=== PATIENT | female | born 1970 | race Caucasian/White ===

== ENCOUNTER 2019-10-24 14:59 | Inpatient (IN) | payer OTHER ==
[~2019-10-24] VITALS: Ht 157.5 cm; Wt 58.5 kg
[2019-10-30] MEDS ORDERED: DUI500 PO (06:50)
[2019-10-30] MEDS ORDERED: DOCUSATE SODIU100 MG PO (06:50)
[2019-10-30] MEDS ORDERED: IBUPROFEN800 MG PO (06:50)
[2019-10-30] MEDS ORDERED: SIMETHICONE125 M1 PO (06:50)
== END 2019-10-30 10:24 | disposition home or self-care (01) | DRG 742 ==
LOC: SURH 14:59 → SURG-SUITE 15:58
PROVIDERS: ADMIT Obstetrics & Gynecology; ATTEND Obstetrics & Gynecology
PROC: 0UB70ZZ Excision of Bilateral Fallopian Tubes, Open Approach (ICD-10-PCS; 2019-10-27)
PROC: 0TQB0ZZ Repair Bladder, Open Approach (ICD-10-PCS; 2019-10-27)
PROC: 0UT90ZZ Resection of Uterus, Open Approach (ICD-10-PCS; principal; 2019-10-27 07:15)
DX: N72 Inflammatory disease of cervix uteri (principal); N99.71 Accidental puncture and laceration of a genitourinary system organ or structure during a genitourinary system procedure; D25.1 Intramural leiomyoma of uterus; D25.0 Submucous leiomyoma of uterus; N84.0 Polyp of corpus uteri; N83.8 Other noninflammatory disorders of ovary, fallopian tube and broad ligament; D64.9 Anemia, unspecified; Y92.234 Operating room of hospital as the place of occurrence of the external cause

== ENCOUNTER 2023-11-01 08:04 | Emergency (ER) | payer OTHER ==
[~2023-11-01] VITALS: Ht 157.5 cm; Wt 64.4 kg
[~2023-11-01 08:04] MED LIST: DOCUSATE SODIU100 MG PO; DUI500 PO; IBUPROFEN800 MG PO; SIMETHICONE125 M1 PO
[2023-11-01 09:36] LABS: HEMOGLOBIN 13.7 g/dL (12.0-15.00); MEAN CELL VOLUME 83.7 fL (80.00-100.00); MEAN CORPUSCULAR HEMOGLOBIN 29.3 pg (27.00-32.0); PLATELET COUNT 294 K/uL (150-450); RED BLOOD COUNT 4.66 M/uL (4.00-6.00); RED CELL DISTRIBUTION WIDTH 13.1 % (11.5-14.5)
[2023-11-01 10:01] LABS: CALCIUM 9.1 mg/dL (8.5-10.1); CREATININE SERUM 0.51 mg/dL (0.55-1.02); GFR 127.13; POTASSIUM 4.15 mEq/L (3.5-5.1)
[2023-11-01] MEDS ORDERED: ACETAMINOPHEN 500 MG GEL..CAP PO ONE ×2 (11:00)
== END 2023-11-01 11:02 | disposition home or self-care (01) ==
LOC: ER 08:05
PROVIDERS: General Practice
DX: R20.0 Anesthesia of skin (principal); R51.9 Headache, unspecified; H57.12 Ocular pain, left eye